=== PATIENT | female | born 1965 | race Caucasian/White ===

== ENCOUNTER → 2018-11-27 17:40 | Outpatient (CLI) | payer OTHER, SELFPAY ==
--- NOTE | 2018-11-27 17:47 | DI.MRI.S_ITS ---
PROCEDURE: MR KNEE LT WO CON INDICATIONS: Medial left knee pain TECHNIQUE: Noncontrast sagittal PD fast spin echo and T2 fast spin echo with fat saturation, sagittal 3-D FLASH with fat saturation; coronal T1 spin echo and PD fast spin echo with fat saturation, and axial PD fast spin echo with fat saturation through the knee. COMPARISON: None. FINDINGS: Image quality: Excellent. Menisci: Lateral meniscus appears intact. Medial meniscal tear involving the anterior horn, with extension of abnormal signal to the superior and inferior articular surfaces. There is also abnormal signal at the periphery of the posterior horn which extends to the meniscocapsular junction. Cruciate ligaments: The anterior and posterior cruciate ligaments appear intact. Medial structures: Proximal medial collateral ligament thickening and intrasubstance signal change suggestive of age indeterminate low-grade sprain The posterior oblique ligament, semimembranosus tendon insertions, oblique popliteal ligament, and meniscocapsular junction appear intact. Visualized portions of the pes anserinus tendons appear normal. No abnormal bursal fluid. Lateral structures: The lateral collateral ligament, long and short heads of the biceps femoris tendon appear intact. The popliteus tendon appears normal; the popliteofibular ligament appears intact. The posterosuperior and anteroinferior popliteomeniscal fascicles appear intact. The arcuate and fabellofibular ligaments appear intact, on either side of the lateral inferior geniculate artery. Iliotibial band appears normal. Anterior structures: Intrasubstance signal change involving the proximal and distal patellar tendon with adjacent soft tissue edema in the infrapatellar subcutaneous fat. Patellar alignment is normal. No femoral trochlear dysplasia or ventral trochlear prominence. No edema in the infrapatellar fat pad. Bones and cartilage: No bone marrow contusions or fractures. Within the medial compartment, there is full-thickness femoral and tibial articular cartilage loss with underlying marrow edema and spurring. Within the lateral compartment, diffuse partial thickness loss of the femoral cartilage. The tibial cartilage appears grossly intact. Within the patellofemoral compartment, diffuse partial thickness loss of the patellar cartilage with areas of near full-thickness fissuring. Mild surface fraying of the patellar trochlear cartilage. Joint space: Moderate joint effusion. A subcentimeter low signal presumably loose bodies seen posterior to the distal femoral metaphysis, measuring up to 8mm for example image 110 series 11, image 102 series 11. IMPRESSION: Medial meniscal tear involving the anterior horn, with additional tear at the periphery of the posterior horn (and/or meniscocapsular separation) Severe degenerative joint disease, most pronounced in the medial compartment. As the Proximal and distal patellar tendinopathy. Prominent superficial infrapatellar subcutaneous edema and fluid. Moderate joint effusion. Loose bodies measuring up to 8 mm, in the superior/posterior joint space adjacent to the posterior lateral femoral condyle. Dictated by: Mark Echols M.D. on 11/28/2018 at 8:47 Approved by: Mark Echols M.D. on 11/28/2018 at 9:01
== END ==
PROVIDERS: PCP Nurse Practitioner Family; Visit Provider Nurse Practitioner Family
DX: M25.562 Pain in left knee (principal); M17.12 Unilateral primary osteoarthritis, left knee; S83.242A Other tear of medial meniscus, current injury, left knee, initial encounter; M25.462 Effusion, left knee
CPT/HCPCS: 73721

== ENCOUNTER → 2022-08-25 15:37 | Outpatient (CLI) | payer OTHER, SELFPAY ==
--- NOTE | 2022-08-25 15:39 | DI.MRI.S_ITS ---
PROCEDURE: MR ANKLE LT WO CON INDICATIONS: Other instability, left ankle TECHNIQUE: Noncontrast sagittal T1 spin echo and T2 fast spin echo with fat saturation, axial proton density fast spin echo and T2 fast spin echo with fat saturation, coronal T1 spin echo and T2 fast spin echo with fat saturation through the ankle/hindfoot. COMPARISON: None. FINDINGS: Image quality: Excellent. Bones and joints: No bone marrow contusions or fractures. No hindfoot coalitions. No osteochondral injuries of the talar dome. Small amount of tibiotalar and subtalar joint effusion is seen. No gross loose bodies. Medial structures: Medial ankle soft tissue swelling and edema is noted over medial malleolus. There is thickening of the posterior tibialis tendon at the level of medial malleolus extending along medial aspect of talus and talonavicular joint with small amount of fluid distending tendon sheath suggestive of low to moderate grade tenosynovitis. The flexor digitorum longus, and flexor hallucis longus tendons are intact. The posterior tibial neurovascular bundle appears normal within the tarsal tunnel, without extrinsic mass effect. The deep layer (anterior and posterior tibiotalar ligaments) and superficial layer (tibionavicular, tibiospring, and tibiocalcaneal ligaments) of the deltoid ligament appear normal. The spring ligament components (superomedial calcaneonavicular, medioplantar oblique calcaneonavicular, and inferoplantar longitudinal ligaments) are intact. Lateral structures: The anterior talofibular, calcaneofibular, and posterior talofibular ligaments appear intact. More superiorly, the anterior and posterior tibiofibular ligaments appear intact, as is the intermalleolar ligament. The tibiofibular syndesmosis is normal in width at 2 mm or less. The peroneus longus and brevis tendons demonstrate normal location and morphology. Adjacent bony peroneal tubercle and retrotrochlear prominence are normal in size. The sinus tarsi demonstrates normal fatty signal, without edema, fibrosis, or cyst formation. Visualized sinus tarsi components (cervical ligament, interosseous talocalcaneal ligament, roots of the inferior extensor retinaculum) appear normal. The calcaneonavicular and calcaneocuboid components of the bifurcate ligament appear intact. The dorsal calcaneocuboid ligament appears intact. Anterior structures: The tibialis anterior, extensor hallucis longus, and extensor digitorum longus tendons appear intact. The dorsal talonavicular ligament appears intact. Posterior and plantar structures: Achilles tendon is intact. Medial and lateral bands of the plantar fascia are of normal thickness. No abductor digiti quinti muscle atrophy to suggest Loza neuropathy. IMPRESSION: 1. Suggestion of low to moderate grade tenosynovitis involving posterior tibialis tendon at the level of medial malleolus extending to the level of talonavicular joint. Rest of the ankle tendons are intact. 2. Medial and lateral ankle ligaments are grossly intact. 3. Soft tissue swelling and edema over medial malleolus. No marrow edema. No fracture or dislocation. No suspicious bony lesion. No osteochondral injuries of talar dome. Small joint effusion. No gross loose bodies. Dictated by: Jevon Beauchamp M.D. on 08/25/2022 at 17:03 Approved by: Jevon Beauchamp M.D. on 08/25/2022 at 17:14
== END ==
PROVIDERS: Referring Provider Podiatrist; Visit Provider Podiatrist
DX: M25.372 Other instability, left ankle (principal); M76.822 Posterior tibial tendinitis, left leg; M25.472 Effusion, left ankle; M79.89 Other specified soft tissue disorders; R26.2 Difficulty in walking, not elsewhere classified
CPT/HCPCS: 73721

== ENCOUNTER → 2023-10-04 16:14 | Outpatient (CLI) | payer OTHER, SELFPAY ==
--- NOTE | 2023-10-04 | DI.MRI.S_ITS ---
PROCEDURE: MR FOOT RT WO CON INDICATIONS: RT FOOT/ASSESS 2ND TOE PLANTAR PLATE TECHNIQUE: Noncontrast sagittal T1 spin echo and T2 fast spin echo with fat saturation, long-axis T1 spin echo and T2 fast spin echo with fat saturation, short-axis T1 spin echo and T2 fast spin echo with fat saturation through the forefoot. COMPARISON: None. FINDINGS: Image quality: Excellent. MR imaging shows findings of a tear involving the plantar plate at the 2nd metatarsal phalangeal joint with fluid filling the gap. There is associated edematous changes surrounding the 2nd metatarsophalangeal joint in the soft tissues and a small joint effusion. The marrow signal appears within normal limits. Otherwise common no significant degenerative changes are present. Marrow signal visualized bones appears within normal limits. Musculature appears unremarkable. Remainder of the visualized ligaments and tendons appear intact. IMPRESSION: 1. 1. Imaging findings consistent with a tear involving the plantar plate involving the 2nd toe. 2. Associated edematous changes in the subcutaneous tissues tissue surrounding 2nd metatarsophalangeal joint. 3. Small to moderate-sized effusion in the 2nd metatarsophalangeal joint. Dictated by: Nile Aleman M.D. on 10/05/2023 at 10:13 Approved by: Nile Aleman M.D. on 10/05/2023 at 10:26
== END ==
PROVIDERS: Referring Provider Podiatrist; Visit Provider Podiatrist
DX: M77.41 Metatarsalgia, right foot (principal); M79.671 Pain in right foot; M25.474 Effusion, right foot
CPT/HCPCS: 73718

== ENCOUNTER → 2024-02-06 11:35 | Outpatient (CLI) | payer OTHER, SELFPAY | PROVIDERS: Visit Provider Nurse Practitioner Family | DX: R30.0 Dysuria (principal); N94.9 Unspecified condition associated with female genital organs and menstrual cycle | CPT/HCPCS: 87086; 87210 ==

== ENCOUNTER → 2025-08-03 16:50 | Outpatient (CLI) | payer OTHER, SELFPAY ==
--- NOTE | 2025-08-03 16:52 | DI.MRI.S_ITS ---
PROCEDURE: MR FOOT RT WO/W CON INDICATIONS: RT FOOT PAIN TECHNIQUE: Multiphasic, multisequence MRI of the forefoot was performed, before and after intravenous contrast administration. COMPARISON: [facility] [place], CR, XR FOOT 3+ VIEWS RIGHT, 07/15/2025, 15:07. FINDINGS: Image quality: Excellent. Bones and joints: Susceptibility artifact at the base of the 2nd proximal phalanx, postprocedural. No acute fracture. No marrow contusion. Mild degenerative change of the 1st metatarsophalangeal joint, with mild subchondral marrow edema. Soft tissues: The visualized plantar fascia, flexor, and extensor tendons are unremarkable. Muscles are normal in signal. There is a 7 mm well-circumscribed T1 intermediate, T2 hyperintense lesion without enhancement in the subcutaneous fat plantar to the 2nd metatarsal head, nonspecific. Mild subcutaneous edema dorsal to the 5th metatarsal head. The Lisfranc ligament is intact. Mild 1st , 2nd, and 3rd intermetatarsal bursitis. IMPRESSION: 1. 7 mm well-circumscribed nonenhancing lesion in the subcutaneous fat plantar to the 2nd metatarsal head, nonspecific and may represent a cystic lesion with blood versus proteinaceous material. Recommend tissue sampling. 2. Mild subcutaneous edema dorsal to the 5th metatarsal head. 3. Postprocedure changes of the base of the 2nd proximal phalanx. Dictated by: Cesia Miranda M.D. on 08/04/2025 at 11:00 Approved by: Cesia Miranda M.D. on 08/04/2025 at 11:12
== END ==
PROVIDERS: Referring Provider Podiatrist; Visit Provider Podiatrist
DX: M79.671 Pain in right foot (principal); R22.41 Localized swelling, mass and lump, right lower limb; M71.571 Other bursitis, not elsewhere classified, right ankle and foot
CPT/HCPCS: 73720; A9579